=== PATIENT | male | born 1955 | race Caucasian/White ===

== ENCOUNTER 2016-08-30 11:41 | Emergency (ER) | payer BC ==
[~2016-08-30] VITALS: Ht 180.3 cm; Wt 87.4 kg
[2016-08-30] MEDS ORDERED: VALSARTAN320 MG PO (13:59)
[2016-08-30] MEDS ORDERED: LO-DOSE ASPIRIN81 M2 PO (13:59)
[2016-08-30] MEDS ORDERED: VITAMIN B-12500 MC5 SL (14:00)
[2016-08-30] MEDS ORDERED: ATARAX,VISTARIL50 MG PO (14:23)
[2016-08-30 14:30] VITALS: BP 176/90
== END 2016-08-30 14:31 | disposition home or self-care (01) ==
LOC: EME 11:41
DX: I10 Essential (primary) hypertension (principal); F41.9 Anxiety disorder, unspecified
CPT/HCPCS: 99281; 99284